=== PATIENT | male | born 1960 | race Caucasian/White ===

== ENCOUNTER 2018-03-25 15:30 | Emergency (ER) | payer BC ==
[~2018-03-25] VITALS: Ht 180.3 cm; Wt 67.1 kg
[2018-03-25 15:53] VITALS: Ht 180.3 cm; Wt 67.1 kg
[2018-03-25] MEDS ORDERED: [UNRECOGNIZED DRUG - OTHER] (15:57)
[2018-03-25] MEDS ORDERED: CELEBREX 100 M100 MG PO (15:57)
[2018-03-25] MEDS ORDERED: FENTORA100 MCG SUBD (17:33)
[2018-03-25] MEDS ORDERED: CELEBREX200 MG PO (17:34)
[2018-03-25] MEDS ORDERED: NORCO 10-325 TA1 TAB PO (17:34)
[2018-03-25] MEDS ORDERED: CYCLOBENZAPRINE10 MG PO (17:35)
[2018-03-25] MEDS ORDERED: OMEPRAZOLE40 MG PO (17:35)
[2018-03-25] MEDS ORDERED: XANAX0.5 MG PO (17:35)
[2018-03-25] MEDS ORDERED: ZOCOR40 MG PO (17:36)
[2018-03-25] MEDS ORDERED: NEURONTIN600 MG PO (17:36)
[2018-03-25 17:41] VITALS: BP 120/71
== END 2018-03-25 17:42 | disposition home or self-care (01) ==
LOC: D.ER 15:30
DX: M54.16 Radiculopathy, lumbar region (principal); G89.29 Other chronic pain; I10 Essential (primary) hypertension; F17.200 Nicotine dependence, unspecified, uncomplicated